=== PATIENT | female | born 1985 | race Two or more races ===

== ENCOUNTER 2016-09-01 17:13 | Inpatient (IN) | payer OTHER ==
[~2016-09-01] VITALS: Ht 165.1 cm; Wt 78.2 kg
[2016-09-01 20:00] VITALS: BP 104/58
[2016-09-01] MEDS ORDERED: DIPHENHYDRAMINE 50 MG CAPSULE PO PRN (23:00)
[2016-09-01] MEDS ORDERED: CEFAZOLIN 2 MG in SODIUM CHLORIDE 0.9% 50 ML IV SCH ×2 (23:00→23:08)
[2016-09-02 07:30] VITALS: BP 93/55
[2016-09-02] MEDS ORDERED: PHYTONADIONE 1 MG/0.5ML IM ONE (07:30)
[2016-09-02] MEDS ORDERED: HEPATITIS B PED VACCINE/PF 10MCG/0.5ML IM-VACC PRN (07:30)
[2016-09-02] MEDS ORDERED: ERYTHROMYCIN OPHTH 0.5%, 1GM EACHEYE ONE (07:30)
[2016-09-02] MEDS ORDERED: PLEASE ENTER HEIGHT AND WEIGHT MC SCH (08:30)
[2016-09-02] MEDS ORDERED: LACTATED RINGERS 1,000 ML IV SCH (09:00)
[2016-09-02] MEDS ORDERED: AZITHROMYCIN 500 MG in SODIUM CHLORIDE 0.9% 250 ML IV ONE (15:00)
[2016-09-02] MEDS ORDERED: CEFAZOLIN 2 MG in SODIUM CHLORIDE 0.9% 50 ML IV ONE (16:49)
[2016-09-02] MEDS ORDERED: CEFAZOLIN PMX 2GM/50ML 50 ML IV ONE (16:54)
[2016-09-02] MEDS ORDERED: SODIUM CITRATE/CITRIC ACID 30 ML UDC ONE (16:55)
[2016-09-02] MEDS ORDERED: METOCLOPRAMIDE 5 MG/ML, 2ML ONE (16:55)
[2016-09-02] MEDS ORDERED: LACTATED RINGERS 1,000 ML IVBOLUS ONE (17:30)
[2016-09-02] MEDS ORDERED: METOCLOPRAMIDE 5 MG/ML, 2ML IV ONE (17:30)
[2016-09-02 20:20] VITALS: BP 93/54
[2016-09-03 09:00] VITALS: BP 98/55
[2016-09-03] MEDS ORDERED: D5%-LACTATED RINGERS 1,000 ML IV SCH ×2 (11:00)
[2016-09-03] MEDS ORDERED: LACTATED RINGERS 1,000 ML IVBOLUS ONE (11:30)
[2016-09-03] MEDS ORDERED: CEFAZOLIN PMX 2GM/50ML 50 ML IV ONE (11:30)
[2016-09-03] MEDS ORDERED: CEFAZOLIN 1,000 MG ONE (12:02)
[2016-09-03] MEDS ORDERED: OXYcodone/APAP 5/325MG TABLET PO PRN (13:30)
[2016-09-03] MEDS ORDERED: AZITHROMYCIN 500 MG TABLET PO ONE (13:30)
[2016-09-03] MEDS ORDERED: OXYcodone/APAP 5/325MG TABLET ONE (15:58)
[2016-09-03] MEDS ORDERED: RHOGAM FROM BLOOD BANK 1 NOTE EA IM/IV ONE (18:00)
[2016-09-03 20:00] VITALS: BP 98/52
[2016-09-03] MEDS ORDERED: DOCUSATE 100 MG CAPSULE PO SCH ×2 (21:00)
[2016-09-04 06:00] VITALS: BP 94/50
[2016-09-04 08:14] VITALS: BP 102/50
== END 2016-09-04 08:30 | disposition home or self-care (01) | DRG 781 ==
LOC: LDOP 17:13 → LDIP 19:34
PROVIDERS: ADMIT Obstetrics & Gynecology Female Pelvic Medicine and Reconstructive Surgery; ATTEND Obstetrics & Gynecology Female Pelvic Medicine and Reconstructive Surgery
PROC: 0UVC7ZZ Restriction of Cervix, Via Natural or Artificial Opening (ICD-10-PCS; principal; 2016-09-03)
PROC: 10903ZU Drainage of Amniotic Fluid, Diagnostic from Products of Conception, Percutaneous Approach (ICD-10-PCS; 2016-09-03)
DX: O34.32 Maternal care for cervical incompetence, second trimester (principal); O23.42 Unspecified infection of urinary tract in pregnancy, second trimester; Z3A.22 22 weeks gestation of pregnancy; O35.8XX0 Maternal care for other (suspected) fetal abnormality and damage, not applicable or unspecified
CPT/HCPCS: 36415; 82106; 82945; 85025; 85461; 86850; 86900; 87070; 87075; 87205; 88235; 88269; 88280; 88285; J0456; J0690; J2790; J2765; J7050; J7120; J7121